=== PATIENT | male | born 2005 | race Two or more races ===

== ENCOUNTER 2024-05-26 00:13 | Emergency (ER) | payer MEDICAID ==
[2024-05-26] MEDS: diphenhydrAMINE 50 MG/ML SDV IM ONE (00:45)
[2024-05-26] MEDS: methylPREDNISolone Sodium Succinate 125 MG/2 ML SDV IM ONE (00:46)
== END 2024-05-26 00:52 | disposition home or self-care (01) ==
LOC: FB.ED 00:13
DX: L23.9 Allergic contact dermatitis, unspecified cause (principal)
CPT/HCPCS: 96372; 99282; J1200; J2919; 99283

== ENCOUNTER 2024-07-08 23:15 | Emergency (ER) | payer MEDICAID ==
[2024-07-08] MEDS ORDERED: predniSONE 20 MG Tab PO ONE (23:16)
[2024-07-08] MEDS: methylPREDNISolone Sodium Succinate 125 MG/2 ML SDV IM ONE (23:57)
[2024-07-08] MEDS: diphenhydrAMINE 50 MG/ML SDV IM ONE (23:58)
== END 2024-07-09 01:10 | disposition home or self-care (01) ==
LOC: FB.ED 23:15
DX: T78.40XA Allergy, unspecified, initial encounter (principal)
CPT/HCPCS: 96372; 99283; J1200; J2919; J7512